=== PATIENT | female | born 1995 | race Caucasian/White ===

== ENCOUNTER 2021-01-22 04:25 | Emergency (ER) | payer MEDICAID, OTHER ==
[~2021-01-22] VITALS: Ht 162.6 cm; Wt 77.0 kg
[2021-01-22] MEDS ORDERED: ACETAMINOPHEN 325MG TABLET PO SCH (07:30)
[2021-01-22 07:40] LABS: CLARITY URINE CLEAR (CLEAR); COLOR URINE YELLOW (YELLOW); KETONES URINE NEGATIVE (NEGATIVE); LEUKOCYTE ESTERASE URINE 1+ (NEGATIVE); NITRITE URINE NEGATIVE (NEGATIVE); OCCULT BLOOD URINE 2+ (NEGATIVE); PROTEIN URINE NEGATIVE (NEGATIVE); SPECIFIC GRAVITY URINE 1.008 (1.005-1.030); UROBILINOGEN URINE 0.2 E.U./dL (0.2-1.0)
[2021-01-22 08:01] LABS: *AMPHETAMINES SCREEN URINE NEGATIVE (NEGATIVE); *BARBITURATES SCREEN URINE NEGATIVE (NEGATIVE); *BENZODIAZEPINES SCREEN URINE NEGATIVE (NEGATIVE); *COCAINE SCREEN URINE NEGATIVE (NEGATIVE); METHADONE URINE SCREEN NEGATIVE (NEGATIVE)
[2021-01-22 08:02] LABS: CANNABINOID URINE SCREEN NEGATIVE (NEGATIVE); OPIATES URINE SCREEN NEGATIVE (NEGATIVE); PHENCYCLIDINE URINE SCREEN NEGATIVE (NEGATIVE)
[2021-01-22] MEDS ORDERED: ACET-2708 MT (08:37)
[2021-01-22] MEDS ORDERED: CEPH500C2 MT (08:37)
[2021-01-22] MEDS ORDERED: CEPHALEXIN 250MG CAPSULE PO SCH (08:45)
[2021-01-22 08:53] VITALS: BP 119/84
== END 2021-01-22 08:59 | disposition home or self-care (01) ==
LOC: ER 04:25
DX: N39.0 Urinary tract infection, site not specified (principal); F12.10 Cannabis abuse, uncomplicated
CPT/HCPCS: 71045; 80305; 81003; 81025; 99284

== ENCOUNTER → 2024-06-10 | Emergency (ER) | payer MEDICAID, OTHER ==
[~2024-06-10] VITALS: Ht 154.9 cm; Wt 61.0 kg
[~2024-06-10] MED LIST: ACET-2708 MT; ACETAMINOPHEN 325MG TABLET PO PRN; CEPH500C2 MT; LORAZEPAM 0.5MG TABLET PO PRN; ONDANSETRON HCL 4MG/2ML INJ IV PRN
[2024-06-10 09:49] VITALS: TEMP 98.6; O2SAT 98
[2024-06-10] MEDS: SODIUM CHLORIDE 0.9% 1,000 ML IV ONE (10:18)
[2024-06-10] MEDS: LORAZEPAM 2MG/ML INJ IV ONE (10:18)
[2024-06-10 10:27] LABS: BASOPHILS % 0.9 % (0.0-2.0); EOSINOPHILS % 0.4 % (0.0-5.0); HEMATOCRIT. 37.6 % (36.0-48.0); HEMOGLOBIN. 12.5 g/dL (12.0-16.0); LYMPHOCYTES % 23.2 % (20.0-50.0); MEAN CORPUSCULAR HEMOGLOBIN 30.1 pg (28.0-32.0); MEAN CORPUSCULAR HGB CONC 33.1 g/dL (31.0-37.0); MEAN CORPUSCULAR VOLUME 90.8 fL (81.0-99.0); MEAN PLATELET VOLUME 7.8 fl (7.4-10.4); MONOCYTES % 5.1 % (2.0-8.0); NEUTROPHILS % 70.4 % (40.0-76.0); PLATELET 395 x1000/uL (130-400); RED BLOOD CELL COUNT 4.14 mill/uL (4.2-5.4); RED CELL DISTRIBUTION WIDTH 19.2 % (11.6-14.6); WHITE BLOOD COUNT 9.4 x1000/uL (4.5-11.0)
[2024-06-10 10:31] LABS: CLARITY URINE CLOUDY (CLEAR); COLOR URINE DARK YELLOW (YELLOW); GLUCOSE URINE NEGATIVE (NEGATIVE); KETONES URINE 2+ (NEGATIVE); LEUKOCYTE ESTERASE URINE 1+ (NEGATIVE); NITRITE URINE NEGATIVE (NEGATIVE); OCCULT BLOOD URINE 2+ (NEGATIVE); PH URINE 5.5 (4.5-8.0); PROTEIN URINE 2+ (NEGATIVE); SPECIFIC GRAVITY URINE 1.024 (1.005-1.030)
[2024-06-10 10:37] LABS: HCG SCREEN NEGATIVE
[2024-06-10 10:38] LABS: CHLORIDE 100 mEq/L (98-107); POTASSIUM 3.4 mEq/L (3.5-5.1); SODIUM 140 mEq/L (136-145)
[2024-06-10 10:39] LABS: CARBON DIOXIDE 24 mEq/L (21-32); INR 0.9; PROTHROMBIN TIME 10.3 sec (9.6-11.0)
[2024-06-10 10:40] LABS: CALCIUM 9.3 mg/dL (8.7-10.4)
[2024-06-10 10:44] LABS: CREATININE 0.6 mg/dL (0.6-1.0)
[2024-06-10 10:45] LABS: ETHANOL BLOOD 300 mg/dL (<10); GLUCOSE 100 mg/dL (70-105); UREA NITROGEN BLOOD 9 mg/dL (9-23)
[2024-06-10 10:46] LABS: ALANINE AMINOTRANSFERASE 108 IU/L (10-49); ALBUMIN 4.7 g/dL (3.2-4.8); ASPARTATE AMINOTRANSFERASE 160 IU/L (<34)
[2024-06-10 10:47] LABS: BILIRUBIN DIRECT 0.2 mg/dL (<=3.0); BILIRUBIN TOTAL 0.5 mg/dL (0.1-1.0); PROTEIN TOTAL 8.5 g/dL (6.0-8.3)
[2024-06-10 10:49] LABS: SQUAMOUS EPITHELIAL CELL URINE 3+ /lpf (RARE/1+)
[2024-06-10 10:50] LABS: MUCUS URINE 1+ /lpf (< = 2+)
[2024-06-10 10:51] LABS: BACTERIA URINE 2+
[2024-06-10] MEDS: CHLORDIAZEPOXIDE 25MG CAPSULE PO ONE (11:29)
[2024-06-10 12:35] VITALS: O2SAT 98
[2024-06-10] MEDS: POTASSIUM CHLORIDE 20MEQ TABLET SR PO NR (14:10)
[2024-06-10] MEDS: CHLORDIAZEPOXIDE 25MG CAPSULE PO SCH (14:10)
[2024-06-10 15:15] VITALS: BP 108/74; PULSE 107; RESP 20
== END | disposition left against medical advice (07) ==
LOC: ER 09:27 → 5WST 12:18 → UNDOADMIN 12:18 → EDBEDREQ 12:20 → EDBEDREQTM 12:20 → UNDODISIN 15:15
DX: F10.239 Alcohol dependence with withdrawal, unspecified (principal); F41.9 Anxiety disorder, unspecified; Z53.29 Procedure and treatment not carried out because of patient's decision for other reasons; Z82.49 Family history of ischemic heart disease and other diseases of the circulatory system; Y90.8 Blood alcohol level of 240 mg/100 ml or more
CPT/HCPCS: 80076; 80048; 81003; 80320; 84703; 83690; 85025; 85610; 36415; 96361; 96374; 99284; J2060; J7030; Z7610 ×5; 99285; G0480